=== PATIENT | female | born 1955 ===

== ENCOUNTER 2024-09-08 01:03 | Emergency (ER) | payer MEDICARE, OTHER, SELFPAY ==
[2024-09-08] VITALS (11 sets, daily range): BP systolic 106–152; BP diastolic 66–85; BMI 18.7
--- NOTE | 2024-09-08 02:45 | ED.GENMED ---
History of Present Illness
General
Chief Complaint: Fall
Source: patient and residential
Time Seen by Provider: 09/08/24 02:40
History of Present Illness
History of Present Illness:
69-year-old female sent to the emergency room from [facility] where she had a fall. Documentation suggest the fall happened yesterday. Today the patient had outpatient x-ray suggesting there is a hip fracture. Therefore patient sent to the
emergency room. No other injuries. She does not take any anticoagulants.
Phy Exam
Physical Exam
Physical Exam:
General: Awake, Alert, Oriented X1. Appears uncomfortable. Cachectic and chronically ill-appearing
Vitals: unremarkable
Head: Atraumatic
Eyes: Pupils equal, EOMI
Throat: Airway intact, no exudates
Neck: Trachea midline
Lungs: Clear and equal b/l
Heart: Regular rate, no murmurs
Abd: Soft, Nontender, No pulsatile mass
Neuro: Nonfocal
Skin: Warm, dry, no rash
Extremities: pulses equal b/l, no edema. Left leg shortened and externally rotated. Significant pain with minimal movement.
Course
Orders/Labs/Results
Orders:
Orders
09/08/24 01:14
CT Cervical Spine W/o Iv Contr Urgent
Comment:
Reason For Exam: fall
CT Head W/o Iv Contrast Urgent
Comment:
Reason For Exam: fall
09/08/24 01:35
CT Pelvis W/o Iv Contrast Urgent
Comment:
Reason For Exam: hip fx
09/08/24 02:35
Complete Blood Count/With Diff Urgent
Comprehensive Metabolic Panel Urgent
09/08/24 03:12
HYDROmorphone [Dilaudid] 0.5 mg IV NOW STA
09/08/24 06:22
Benztropine [Cogentin] 1 mg PO NOW STA
Haloperidol [Haldol] 12.5 mg PO NOW STA
Lamotrigine [Lamictal] 100 mg PO NOW STA
Abnormal Lab Results
09/08/24
02:35
RBC 3.62 L 10^6/uL
(4.20-5.40)
Hgb 10.0 L g/dL
(12.0-16.0)
Hct 30.7 L %
(37.0-47.0)
MCHC 32.6 L g/dL
(33.0-37.0)
MPV 11.1 H fL
(7.4-10.4)
Abs Immat Gran (auto) 0.1 H 10^3/uL
(0-0.05)
Absolute Neuts (auto) 6.8 H 10^3/uL
(1.4-6.5)
Absolute Lymphs (auto) 0.9 L 10^3/uL
(1.2-3.4)
Absolute Monos (auto) 1.0 H 10^3/uL
(0.1-0.6)
Immature Gran % 0.6 H %
(0-0.5)
Neutrophils % 77.8 H %
(42.2-75.2)
Lymphocytes % 10.3 L %
(20.5-51.1)
Monocytes % 10.9 H %
(1.7-9.3)
BUN 33 H mg/dl
(7-17)
Glucose 109 H mg/dl
(70-99)
Total Protein 6.0 L g/dl
(6.3-8.2)
09/08/24 02:35
09/08/24 02:35
Vital Signs
Initial and Last Documented VS:
Initial Vital Signs
Temp Pulse Resp BP Pulse Ox
98 F 102 13 147/79 98
09/08/24 01:05 09/08/24 01:05 09/08/24 01:05 09/08/24 01:05 09/08/24 01:05
Last Documented Vital Signs
Temp Pulse Resp BP Pulse Ox
98 F 95 15 106/67 95
09/08/24 01:05 09/08/24 04:00 09/08/24 04:00 09/08/24 04:00 09/08/24 04:00
MDM/Problems Addressed
Differential Diagnosis Includes:
Hip fracture, hip dislocation, femur fracture, pelvic fracture
MDM/Problems Addressed:
Patient presents with fracture to her left hip. Case discussed with Dr. Alva who is on-call for orthopedics. He believes the fracture is quite extensive and is not amendable to the typical procedures. Will need a more complicated procedure and
must be transferred. Discussed with Dr. Gatica at [facility] who will operate on the patient. Patient accepted to the medicine service by Dr. Vargas
*Pulse Oximetry
Patient hypoxic: no
*Critical Care Note
Total Time (30-74mins, 75-104mins- exclusive of procedures): Not Applicable
Patient Management
Social determinants of health affecting care: Living situation and Other (Dementia)
ED Attending Note
-
Portions of this chart may have been created with voice recognition software.� Occasional wrong word or��sound alike� substitutions may have occurred due to the inherent limitations of voice recognition software.
Discharge Plan
Departure
Patient Disposition: Acute Care Hospital
Date of Disposition: 09/08/24
Time of Disposition: 07:19
Admit to: Med/Surg
Condition: Fair
Discharge Problem:
Closed fracture of left hip
Prescriptions:
No Action
acetaminophen 325 mg Tablet
650 mg PO Q6H PRN (Reason: fever)
acetaminophen 325 mg Tablet
650 mg PO Q6H PRN (Reason: mild pain)
trazodone 50 mg Tablet
50 mg PO HS
prazosin [Minipress] 1 mg Capsule
1 mg PO HS
olanzapine 5 mg Tablet
5 mg PO DAILY
acetaminophen 500 mg Tablet
1,000 mg PO TID @ 0800,1200,1700 PRN (Reason: pain)
magnesium hydroxide [Milk of Magnesia] 400 mg/5 mL Suspension
30 ml PO DAILY PRN (Reason: CONSTIPATION)
bisacodyl 10 mg Suppository
10 mg DC DAILY PRN (Reason: constipation)
haloperidol 10 mg Tablet
12.5 mg PO BID
benztropine 1 mg Tablet
1 mg PO DAILY
Fleet Enema 19-7 gram/118 mL Enema
118 ml DC ONCE PRN (Reason: constipation)
mirtazapine 45 mg Tablet
45 mg PO HS
lamotrigine 100 mg Tablet
100 mg PO BID
Referrals:
Kodi Moran DO [Family Provider] -
Hospital Transfer
Other hospital: [facility]
I certify that the patient requires transfer: Yes
Discussed case with accepting physician: Dr. Vargas (Medicine) Dr. Gatica (ortho)
Reason for transfer: availability of service
Interventions
Interventions:
*Risk Screen - Suicide Last Done: 09/08/24 01:08
*General Assessment Last Done: 09/08/24 01:08
*Neglect/Abuse Screening Last Done: 09/08/24 01:08
*ED COVID-19 Vaccine History Last Done: 09/08/24 01:08
ED-Musculoskeletal Assessment Last Done: 09/08/24 01:10
ED- Neurological Assessment Last Done: 09/08/24 01:10
ED-Skin Assessment Last Done: 09/08/24 01:10
Discharge Date and Time
Print Language: GEORGIAN
[2024-09-08 02:50] LABS: % Basophils 0.2 % (0-2); % Eosinophils 0.2 % (0-6); % Immature Granulocytes 0.6 % (0-0.5); % Lymphocytes 10.3 % (20.5-51.1); % Monocytes 10.9 % (1.7-9.3); % Neutrophils 77.8 % (42.2-75.2); Absolute Immature Granulocytes 0.1 10^3/uL (0-0.05); Absolute Lymphocytes 0.9 10^3/uL (1.2-3.4); Absolute Neutrophils 6.8 10^3/uL (1.4-6.5); Hematocrit 30.7 % (37.0-47.0); Mean Corp Hgb Conc. 32.6 g/dL (33.0-37.0); Mean Corpuscular Hgb 27.6 pg (27.0-31.0); Mean Corpuscular Volume 84.8 fL (81.0-99.0); Mean Platelet Volume 11.1 fL (7.4-10.4); Nucleated Red Blood Cells % 0 %; Platelet Count 187 10^3/uL (130-400); Red Blood Cell Count 3.62 10^6/uL (4.20-5.40); Red Cell Dist. Width 14.1 % (11.5-14.5); White Blood Cell Count 8.8 10^3/uL (4.8-10.8)
[2024-09-08 03:01] LABS: ALT (SGPT) 19 U/L (0-35); AST (SGOT) 31 U/L (14-36); Albumin 3.6 g/dl (3.5-5.0); Alkaline Phosphatase 112 U/L (38-126); Blood Urea Nitrogen 33 mg/dl (7-17); Calcium 9.5 mg/dl (8.4-10.2); Carbon Dioxide 30 mmol/L (22-30); Chloride 100 mmol/L (98-107); Estimated Creatinine Clearance 63 ml/min; Glucose 109 mg/dl (70-99); Potassium 3.9 mmol/L (3.5-5.1); Sodium 137 mmol/L (135-145); Total Bilirubin 0.4 mg/dl (0.2-1.3); eGFR > 60.00
[2024-09-08] MEDS: DILAUDID 0.5 MG IV (03:34)
[2024-09-08] MEDS: LAMICTAL 100 MG PO (06:28)
[2024-09-08] MEDS: HALDOL 12.5 MG PO (06:28)
[2024-09-08] MEDS: COGENTIN 1 MG PO (06:28)
--- NOTE | 2024-09-08 09:18 | CM ---
Addendum entered by Margaret Hoang RN 09/08/24 09:20:
LANETTE updated Mary Ellen from [facility] with plan for transfer.
Original Note:
CM confirmed that patient's friend Elise is patient's POA [phone].
[2024-09-08] MEDS: ATIVAN 1 MG IV (10:47)
== END 2024-09-08 12:26 | disposition short-term general hospital (02) ==
LOC: EMR 01:03
PROVIDERS: EMERGENCY PHYSICIAN Emergency Medicine; FAMILY PHYSICIAN Internal Medicine
DX: S72.142A Displaced intertrochanteric fracture of left femur, initial encounter for closed fracture (principal); W19.XXXA Unspecified fall, initial encounter; F03.90 Unspecified dementia, unspecified severity, without behavioral disturbance, psychotic disturbance, mood disturbance, and anxiety
CPT/HCPCS: 99285; 96374; 96375; 70450; 72125; 72192; 80053; 85025